=== PATIENT | female | born 1965 | race Caucasian/White ===

== ENCOUNTER 2016-11-16 18:49 | Emergency (ER) | payer MEDICARE ==
[~2016-11-16] VITALS: Ht 175.3 cm; Wt 96.2 kg
[2016-11-16 19:00] VITALS: BP_SYST 112
[2016-11-16] MEDS ORDERED: IBUPROFEN 800 MG TABLET PO ONE (19:15)
[2016-11-16 20:28] VITALS: BP_SYST 112
== END 2016-11-16 20:30 | disposition home or self-care (01) ==
LOC: SED 18:49
DX: S09.8XXA Other specified injuries of head, initial encounter (principal); X58.XXXA Exposure to other specified factors, initial encounter; Y93.9 Activity, unspecified; Y92.89 Other specified places as the place of occurrence of the external cause; Y99.8 Other external cause status
CPT/HCPCS: 70450-TC; 81025; 99284